=== PATIENT | male | born 1995 | race Asian ===

== ENCOUNTER 2016-07-31 21:01 | Emergency (ER) | payer OTHER ==
[~2016-07-31] VITALS: Ht 180.3 cm; Wt 116.8 kg
[2016-07-31 21:04] VITALS: TEMP 36.8; Ht 180.3 cm; Wt 116.8 kg
--- NOTE | 2016-07-31 21:52 | DIAGNOSTIC IMAGING REPORT ---
NASAL BONES MIN 3 VIEWS CLINICAL HISTORY: nasal bone injury trauma COMPARISON STUDY: None FINDINGS: Nondisplaced hairline cortical fracture tip nasal bones. Maxillary spine is intact. Major sinuses are clear. IMPRESSION: Nondisplaced cortical fracture tip nasal bones. Electronically signed by: Richard Lyman M.D. 07/31/2016 9:50 PM Dictated Date/Time: 07/31/2016 9:50 PM
--- NOTE | 2016-07-31 22:11 | EMERGENCY ROOM VISIT NOTE ---
ED Visit Note First contact with patient: 21:15 CHIEF COMPLAINT: Nose injury today HISTORY OF PRESENT ILLNESS: This 20-year-old male presents the ER with chief complaint of nasal injury. The patient states that he was playing soccer just prior to arrival and another player elbowed him in the nose. The patient states when he cut the bridge of his noticed it felt like it moved. He also had some bleeding out of his nostrils but that has resolved. The patient denies any other head injury, neck pain, dizziness or headache. REVIEW OF SYSTEMS: 6 system review was performed and was negative unless stated otherwise in history of present illness. PMH: The patient is healthy; there is no significant medical or surgical history. SOCIAL HISTORY: Patient denies any tobacco or alcohol use. PHYSICAL EXAM: Vital Signs: Were reviewed Reviewed Nurse's notes. GEN.: 20-year -old male appears in no acute distress. MENTAL Status: Alert and oriented 3. NOSE: No gross bony deformity noted. There is some swelling noted over the bridge of the nose. There is some bright red blood noted in both nostrils but no active bleeding noted at this time. PHARYNX: No blood noted on the posterior pharynx. FACE: Remainder face is unremarkable. EMERGENCY DEPARTMENT COURSE: The patient was evaluated. The patient was offered pain medication but declined. X-ray of the nasal bones was ordered and interpreted by the radiologist and myself. DIAGNOSTICS:NASAL BONES MIN 3 VIEWS CLINICAL HISTORY: nasal bone injury trauma COMPARISON STUDY: None FINDINGS: Nondisplaced hairline cortical fracture tip nasal bones. Maxillary spine is intact. Major sinuses are clear. IMPRESSION: Nondisplaced cortical fracture tip nasal bones. Electronically signed by: Richard Lyman M.D. 07/31/2016 9:50 PM The patient was informed of the findings. The patient was discharged home in stable condition. DIAGNOSIS: Fractured nose DISCHARGE INSTRUCTIONS & TREATMENT: Ice to the swollen bridge of the nose frequently over the next 24 hours. Ibuprofen, 600 mg every 6 hours if needed for pain. See a plastic surgeon in 1 week if the nose looks significantly displaced or crooked and you would like the appearance improved. Current/Historical Medications No Active Prescriptions or Reported Meds Allergies Coded Allergies: No Known Allergies (Unverified , 07/31/16) Vital Signs Date Time Temp Pulse Resp B/P Pulse Ox O2 Delivery O2 Flow Rate FiO2 3/3/17 21:04 36.8 101 18 139/85 96 Room Air Departure Information Prescriptions No Active Prescriptions or Reported Meds Referrals No Doctor, Assigned (PCP) Patient Instructions [facility]
[2016-07-31 22:19] VITALS: BP 124/74; PULSE 84; O2SAT 99
== END 2016-07-31 22:20 | disposition home or self-care (01) ==
LOC: C.EDB 21:02 → C.EDD 22:20
DX: S02.2XXA Fracture of nasal bones, initial encounter for closed fracture (principal); W50.0XXA Accidental hit or strike by another person, initial encounter; Y93.66 Activity, soccer